=== PATIENT | female | born 1960 | race African-American/Black ===

== ENCOUNTER → 2016-07-21 | Outpatient (CLI) | payer BC ==
[~2016-07-21] MED LIST: NS 100 ML IV 100 ML IV ONE
[2016-07-21 10:50] LABS: CREATININE 0.8 mg/dL (0.55-1.02)
== END ==
LOC: RAD 09:57
PROVIDERS: ATTEND Nurse Practitioner Family
DX: R10.84 Generalized abdominal pain (principal)
CPT/HCPCS: 36415; 82565; 84520; A4222

== ENCOUNTER → 2016-07-22 | Outpatient (CLI) | payer BC ==
--- NOTE | 2016-07-22 12:25 | CT ---
HISTORY: Generalized abdominal pain, hernia repair in 2008 Study: CT abdomen and pelvis with contrast Comparison: None Technique: Multiple axial images of the abdomen and pelvis were obtained with IV contrast. Oral contrast was a dministered. Dose reduction techniques including Automated Exposure Control (AEC) and adjustment of mA and kV were utilized. Findings: The visualized portions of the lung bases are unremarkable. The liver, spleen, pancreas, kidneys, a nd adrenal glands are unremarkable in their CT appearance. The gallbladder is removed. No renal calc placido. No free intraperitoneal air. No evidence of intestinal obstruction or inflammation. Oral contrast re aches the distal colon. The appendix is not visualized. No free fluid. Normal urinary bladder. The soft tissues and osseous structures are unremarkable. The vascular structures are unremarkable. No pathologically enlarged lymph nodes are identified. Previous ventral hernia repair with mesh is n oted. No recurrent hernia is identified. The uterus is removed. IMPRESSION: 1. No acute abnormalities identified. 2. Previous ventral hernia repair and additional surgical changes as described. Reported By:
== END ==
LOC: RAD 10:27
PROVIDERS: ATTEND Nurse Practitioner Family
DX: R10.84 Generalized abdominal pain (principal)
CPT/HCPCS: 74177

== ENCOUNTER → 2016-11-18 | Outpatient (CLI) | payer BC ==
--- NOTE | 2016-11-19 15:17 | RAD ---
Upper GI fluoroscopic study Indication: Ventral hernia without obstruction. Left lower quadrant pain. Technique: Thin, thick liquid barium in gas were administered by mouth the patient with fluoroscopic images obtained in multiple projections. Findings: The esophagus appears normal without large stricture or filling defect. The proximal stoma ch appears normal. Rounded areas near the gastric antrum could represent small soreness. A polyp is not excluded. Impression: Question followup versus ulcer in the gastric antrum. Artifact might appear similar. EGD followup is recommended to exclude true lesion. Reported By:
--- NOTE | 2016-11-19 15:19 | RAD ---
Small-bowel follow-through Indication: Pain. Hernia. Technique: Radiographic images obtained after oral administration of contrast Findings: Small bowel folds appear normal. Contrast has entered the colon by 30 min, and is well in the cecum by 1 hr. Terminal ileum appears normal. Colonic folds appear normal. Impression: 1. No obstruction. 2. No abnormal mucosal fold identified. 3. See separately dictated upper GI report. Endoscopy followup recommended. Reported By:
== END ==
LOC: RAD 09:45
PROVIDERS: ATTEND Internal Medicine Gastroenterology
DX: Z01.818 Encounter for other preprocedural examination (principal); K43.9 Ventral hernia without obstruction or gangrene; R10.32 Left lower quadrant pain
CPT/HCPCS: 74241; 74250

== ENCOUNTER → 2017-01-07 | Outpatient (CLI) | payer BC ==
[2017-01-07 10:55] LABS: BASOPHILS # (AUTO) 0.1 X10^3/uL (0.0-0.1); BASOPHILS % (AUTO) 0.9 % (0.2-1.0); EOSINOPHILS # (AUTO) 0.1 x10^3/uL (0.0-0.2); EOSINOPHILS % (AUTO) 1.8 % (0.9-2.9); HEMATOCRIT 33.5 % (36.0-47.0); HEMOGLOBIN 10.5 g/dL (12.0-16.0); LYMPHOCYTES # (AUTO) 2.3 X10^3/uL (1.3-2.9); MEAN CORPUSCULAR HEMOGLOBIN 21.7 pg (27.0-34.0); MEAN CORPUSCULAR HGB CONC 31.5 g/dL (33.0-35.0); MEAN PLATELET VOLUME 8.2 fL (7.4-11.0); MONOCYTES # (AUTO) 0.4 x10^3/uL (0.3-0.8); MONOCYTES % (AUTO) 6.6 % (0.0-13.0); NEUTROPHILS # (AUTO) 3.6 x10^3/uL (2.2-4.8); NEUTROPHILS % (AUTO) 55.7 % (42.0-75.0); PLATELET COUNT 326 X10^3/uL (150.0-450.0); RED BLOOD COUNT 4.85 X10^6/uL (3.5-5.4); RED CELL DISTRIBUTION WIDTH 15.9 % (11.6-16.5); WHITE BLOOD COUNT 6.4 X10^3/uL (3.6-10.0)
[2017-01-07 11:04] LABS: ALANINE AMINOTRANSFERASE 17 Units/L (12-78); ALBUMIN 3.5 g/dL (3.4-5.0); ALKALINE PHOSPHATASE 68 Units/L (46-116); AMYLASE 107 Units/L (25-115); ASPARTATE AMINO TRANSFERASE 14 Units/L (15-37); BILIRUBIN,DIRECT 0.07 mg/dL (0-0.2); BLOOD UREA NITROGEN 9 mg/dL (7-18); CALCIUM 9.1 mg/dL (8.5-10.1); CARBON DIOXIDE 30.5 mmol/L (21-32); CHLORIDE 106 mmol/L (98-107); CREATININE 0.79 mg/dL (0.55-1.02); LIPASE 77 Units/L (73-393); SODIUM 142 mmol/L (136-145); TOTAL PROTEIN 7.7 g/dL (6.4-8.2); eGFR BLACK RACES > 60 (>60); eGFR NON BLACK RACES > 60 (>60)
[2017-01-07 11:19] LABS: HYPOCHROMASIA 1+; MICROCYTOSIS 1+; PLATELET MORPHOLOGY COMMENT NORMAL (NORMAL)
== END ==
LOC: LAB 10:15
PROVIDERS: ATTEND Nurse Practitioner Family
DX: R10.32 Left lower quadrant pain (principal)
CPT/HCPCS: 36415; 80048; 80076; 82150; 83690; 85025